=== PATIENT | female | born 1990 | race Asian ===

== ENCOUNTER 2016-11-01 20:19 | Inpatient (IN) | payer OTHER ==
[2016-11-02 10:18] LABS: Hematocrit 43 % (35-47); Hemoglobin 14.2 g/dl (12.0-16.0); Mean Corpuscular HGB Conc 33 g/dl (31-36); Mean Corpuscular Hemoglobin 32 pg (27-31); Mean Corpuscular Volume 95 fL (80-97); Mean Platelet Volume 8 um3 (7.4-10.4); Red Blood Count 4.49 10^6/ul (4.0-5.4); Red Cell Distribution Width 14 % (10.5-15); White Blood Count 18.1 10^3/ul (3.5-10.8)
[2016-11-02 10:19] LABS: Add Diff/Slide Review? Slide Review Added; Comments Flag Yes
[2016-11-02 10:40] LABS: Eosinophils % 1 % (0-6); Immature Granulocytes 6 % (0-9); Metamyelocytes % 2 % (0-2); Myelocytes % 1 % (0-1); Neutrophil % 78 % (38-83); RBC Morphology Normal (Normal)
[2016-11-02] MEDS ORDERED: Oxytocin in LR* 20 UNITS/1,000 ML BAG IVPB SCH (11:00)
[2016-11-02] MEDS ORDERED: Witch Hazel PAD* JAR TOPICAL PRN (12:35)
[2016-11-02] MEDS ORDERED: Glycerin ADULT SUPP PR PRN (12:35)
[2016-11-02] MEDS ORDERED: Acetaminophen TAB* 325 MG PO PRN (12:35)
[2016-11-02] MEDS ORDERED: Dibucaine 1% 28.35 GM TUBE PR PRN (12:35)
[2016-11-02] MEDS: Ibuprofen TAB* 600 MG PO PRN ×2 (13:49→21:27)
[2016-11-02] MEDS ORDERED: Simethicone CHEW TAB* 80 MG PO SCH (17:30)
[2016-11-02] MEDS ORDERED: Hepatitis B Immune Globulin* 1 ML VIAL IM ONE (19:00)
[2016-11-02] MEDS ORDERED: Hepatitis B Vaccine (ADULT)* 2 X 0.5 ML VIALS IM ONE (19:00)
[2016-11-02] MEDS: Docusate CAP* 100 MG PO SCH ×2 (20:31→21:27)
[2016-11-03] MEDS: Ibuprofen TAB* 600 MG PO PRN ×2 (05:50→15:14)
[2016-11-03 05:57] LABS: Hematocrit 36 % (35-47); Hemoglobin 12.2 g/dl (12.0-16.0); Mean Corpuscular HGB Conc 34 g/dl (31-36); Mean Corpuscular Hemoglobin 32 pg (27-31); Mean Corpuscular Volume 94 fL (80-97); Mean Platelet Volume 8 um3 (7.4-10.4); Red Blood Count 3.85 10^6/ul (4.0-5.4); Red Cell Distribution Width 14 % (10.5-15); White Blood Count 16.2 10^3/ul (3.5-10.8)
[2016-11-03] MEDS ORDERED: Ferrous Gluconate TAB* 324 MG TAB PO SCH (09:00)
[2016-11-03] MEDS ORDERED: Varicella Virus Vaccine Live* 0.5 ML VIAL SUBCUT ONE (09:00)
[2016-11-03] MEDS: Docusate CAP* 100 MG PO SCH ×3 (09:28→20:12)
[2016-11-04] MEDS: Ibuprofen TAB* 600 MG PO PRN (07:26)
[2016-11-04] MEDS: Docusate CAP* 100 MG PO SCH (07:26)
[2016-11-04 08:14] VITALS: BP 88/52
== END 2016-11-04 13:30 | disposition home or self-care (01) | DRG 560 ==
LOC: MCHOBOUT 20:19 → MCHOB 20:53
PROVIDERS: ADMIT Midwife; ATTEND Midwife
PROC: 10E0XZZ Delivery of Products of Conception, External Approach (ICD-10-PCS; principal; 2016-11-01)
PROC: 4A0HXCZ Measurement of Products of Conception, Cardiac Rate, External Approach (ICD-10-PCS; 2016-11-01)
PROC: 0HQ9XZZ Repair Perineum Skin, External Approach (ICD-10-PCS; 2016-11-01)
DX: O98.42 Viral hepatitis complicating childbirth (principal); B18.1 Chronic viral hepatitis B without delta-agent; O70.0 First degree perineal laceration during delivery; Z3A.38 38 weeks gestation of pregnancy; Z37.0 Single live birth; O35.8XX0 Maternal care for other (suspected) fetal abnormality and damage, not applicable or unspecified
CPT/HCPCS: 36415; 85025; 86850; 86900; 86901; 90371; A9270-GY